=== PATIENT | female | born 1935 | race Caucasian/White ===

== ENCOUNTER 2020-09-29 20:33 | Emergency (ER) | payer MEDICARE, BC ==
[2020-09-29] MEDS ORDERED: cloNIDine 0.1 MG Tab PO ONE (21:08)
--- NOTE | 2020-09-29 21:11 | EDM.PDOC ---
ED HPI GENERAL MEDICAL PROBLEM - General Chief Complaint: Cardiovascular Problem Stated Complaint: BLOOD PRESSURE Time Seen by Provider: 09/29/20 21:09 Source of Information: Reports: Patient History Limitations: Reports: No Limitations - History of Present Illness INITIAL COMMENTS - FREE TEXT/NARRATIVE: Venessa complains of Blood Pressure elevation. She felt a little dizzy,and checked her own BP and it was 197/117. She has no symptoms now. No previous HTN treatment,though it has been elevated a few times at the doctor's office. Treatments [employer]: Reports: Other (see below) Other Treatments [employer]: BP check - Related Data Allergies Allergy/AdvReac Type Severity Reaction Status Date / Time No Known Allergies Allergy Verified 09/29/20 20:48 Home Meds: Home Meds Cranberry 500 mg PO DAILY 09/29/20 [History] L.acidoph,Paracasei, B.lactis [Probiotic] 1 tab PO DAILY 09/29/20 [History] Losartan/Hydrochlorothiazide [Losartan-HCTZ 100-25 MG] 1 each PO DAILY #30 tablet 09/29/20 [Rx] Social & Family History - Tobacco Use Tobacco Use Status *Q: Never Tobacco User - Caffeine Use Caffeine Use: Reports: Soda - Recreational Drug Use Recreational Drug Use: No ED ROS GENERAL - Review of Systems Review Of Systems: Comprehensive ROS is negative, except as noted in HPI. ED EXAM, GENERAL - Physical Exam Exam: See Below Exam Limited By: No Limitations General Appearance: Alert, WD/WN Ear Exam: Bilateral Ear: Auricle Normal, Canal Normal, TM normal Nose: Normal Inspection Throat/Mouth: Normal Inspection, Normal Lips, Normal Teeth, Normal Gums, Normal Oropharynx, Normal Voice, No Airway Compromise Head: Atraumatic Cardiovascular: Normal Peripheral Pulses, Regular Rate, Rhythm #1 Interpretation EKG Date: 09/29/20 Rhythm: NSR [place]: Normal P-Wave: Present QRS: Normal ST-T: Normal Comparison: NA - No Prior EKG Course - Vital Signs Last Recorded V/S: Last Vital Signs Temp 98.7 F 09/29/20 20:40 Pulse 90 09/29/20 20:40 Resp 16 09/29/20 20:40 BP 195/107 H 09/29/20 20:40 Pulse Ox 94 L 09/29/20 20:40 - Orders/Labs/Meds Orders: Active Orders 24 hr Category Date Time Status EKG Documentation Completion [RC] ASDIRECTED Care 09/29/20 21:08 Active EKG 12 Lead [EK] Routine Ther 09/29/20 21:08 Ordered Labs: Laboratory Tests 09/29/20 09/29/20 09/29/20 Range/Units 21:15 21:15 21:15 WBC 9.6 (3.0-10.3) x10-3/uL RBC 4.83 (3.60-5.20) x10(6)uL Hgb 14.9 (11.4-15.5) g/dL Hct 44.5 (34.2-48.2) % MCV 92.0 (76.7-100.5) fL MCH 30.8 (23.9-33.9) pg MCHC 33.5 (31.9-34.8) g/dL RDW 13.1 (12.3-16.5) % Plt Count 267 (151-488) x10(3)uL MPV 8.4 (7.1-12.4) fL Neut % (Auto) 54.7 (30.8-76.2) % Lymph % (Auto) 34.3 (18.4-52.1) % [place] % (Auto) 7.9 (4.4-15.7) % Eos % (Auto) 2.5 (0.6-8.1) % Baso % (Auto) 0.6 (0.2-1.5) % Neut # (Auto) 5.2 (1.5-6.3) x10-3/uL Lymph # (Auto) 3.3 (1.0-4.4) x10-3/uL [place] # (Auto) 0.8 (0.3-1.0) x10-3/uL Eos # (Auto) 0.2 (0.0-0.8) x10-3/uL Baso # (Auto) 0.1 (0.0-0.1) x10-3/uL Sodium 141 (135-145) mmol/L Potassium 4.0 (3.5-5.3) mmol/L Chloride 104 (100-110) mmol/L Carbon Dioxide 25 (21-32) mmol/L BUN 14 (7-18) mg/dL Creatinine 0.9 (0.55-1.02) mg/dL Est Cr Clr Drug Dosing TNP Estimated GFR (MDRD) 60 (>60) BUN/Creatinine Ratio 15.6 (9-20) Glucose 135 H (80-116) mg/dL Calcium 7.9 L (8.6-10.2) mg/dL Troponin I 6.6 (4.0-60.3) pg/mL Meds: Medications Discontinued Medications Generic Name Dose Route Start Last Admin Trade Name Courtney PRN Reason Stop Dose Admin Clonidine HCl 0.1 mg 09/29/20 21:08 09/29/20 20:40 Clonidine 0.1 Mg Tab PO 09/29/20 21:09 0.1 mg ONETIME ONE Administration HCTZ/Losartan Potassium 1 tab 09/29/20 21:54 Hydrochlorothiazide/Losartan 12.5-100 Mg Tab PO 09/29/20 21:55 ONETIME ONE Departure - Departure Time of Disposition: 21:45 Disposition: Home, Self-Care 01 Condition: Good Clinical Impression: Hypertension Qualifiers: Hypertension type: essential hypertension Qualified Code(s): I10 - Essential (primary) hypertension Prescriptions: Losartan/Hydrochlorothiazide [Losartan-HCTZ 100-25 MG] 1 each PO DAILY #30 tablet Referrals: PCP,None [Primary Care Provider] - Forms: ED Department Discharge Sepsis Event Note (ED) - Evaluation Sepsis Screening Result: No Definite Risk - Focused Exam Vital Signs: Vital Signs Temp Pulse Resp BP BP Pulse Ox 09/29/20 20:40 98.7 F 90 16 195/107 H 195/107 H 94 L - Problem List & Annotations (1) Hypertension SNOMED Code(s): 05708404 Code(s): I10 - ESSENTIAL (PRIMARY) HYPERTENSION Status: Acute Current Visit: Yes Qualifiers: Hypertension type: essential hypertension Qualified Code(s): I10 - Essential (primary) hypertension - Problem List Review Problem List Initiated/Reviewed/Updated: Yes - My Orders Last 24 Hours: My Active Orders 09/29/20 21:08 EKG Documentation Completion [RC] ASDIRECTED EKG 12 Lead [EK] Routine - Assessment/Plan Last 24 Hours: My Active Orders 09/29/20 21:08 EKG Documentation Completion [RC] ASDIRECTED EKG 12 Lead [EK] Routine Plan: Labs were better. [facility] [place] home on [place]/HCTZ
[2020-09-29] MEDS ORDERED: Hydrochlorothiazide/Losartan 12.5-100 mg Tab PO ONE (21:54)
== END 2020-09-29 22:15 | disposition home or self-care (01) ==
LOC: FB.ED 20:33
DX: I10 Essential (primary) hypertension (principal); Z79.899 Other long term (current) drug therapy
CPT/HCPCS: 36415; 80048; 84484; 85025; 93005; 93010; 99283; 99283-25; A9270-GY